=== PATIENT | male | born 2005 | race Native Hawaiian/Other Pacific Islander ===

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

== ENCOUNTER 2025-03-04 16:30 | Emergency (ER) | payer OTHER, SELFPAY ==
--- NOTE | ~2025-03-04 | US_ITS ---
CLINICAL HISTORY: R testicular pain US scrotum with Color and Duplex doppler. Comparison: None Technique: Real time sonographic imaging, including color-flow imaging, was performed by the jewel corner brushing machine operator. Multiple construction representative static images were saved for review. Findings: Right testicle normal size and echotexture, 4.4 x 2.1 x 3.0 cm. Normal color flow. Normal arterial and venous spectral doppler waveforms. Left testicle normal size and echotexture, 4.3 x 1.9 x 2.7 cm. Normal color flow. Normal arterial and venous spectral doppler waveforms. Normal epididymides. Small bilateral hydroceles Impression: 1. Normal testes. 2. Normal epididymi. 3. Small bilateral hydroceles This document has been electronically signed by: Santana Bui MD on 03/04/2025 20:03:12
--- NOTE | ~2025-03-04 | US_ITS ---
CLINICAL HISTORY: R testicular pain US scrotum with Color and Duplex doppler. Comparison: None Technique: Real time sonographic imaging, including color-flow imaging, was performed by the machine precision etcher. Multiple billing representative static images were saved for review. Findings: Right testicle normal size and echotexture, 4.4 x 2.1 x 3.0 cm. Normal color flow. Normal arterial and venous spectral doppler waveforms. Left testicle normal size and echotexture, 4.3 x 1.9 x 2.7 cm. Normal color flow. Normal arterial and venous spectral doppler waveforms. Normal epididymides. Small bilateral hydroceles Impression: 1. Normal testes. 2. Normal epididymi. 3. Small bilateral hydroceles This document has been electronically signed by: Santana Bui MD on 03/04/2025 20:03:12
[2025-03-04 16:49] VITALS: BP 118/54; PULSE 59; RESP 18; TEMP 36.7; O2SAT 98; BMI 24.1
--- NOTE | 2025-03-04 16:49 | ED_ITS ---
HPI - General Adult General Chief complaint: General Medical Stated complaint: Groin pain Time Seen by Provider: 03/04/25 20:33 Source: patient Mode of arrival: ambulatory Limitations: no limitations History of Present Illness ED Provider: Dr. Redding HPI narrative: 19-year-old male presented hospital today for right testicular pain that started on Friday. Patient stated the pain improves onto Friday however this pain returned. Therefore he presents to the ER for further evaluation. Denies any trauma to his right testicle. Patient denies any abdominal pain. Patient denies any penile discharge. Related Data Previous Rx's ?Medication ?Instructions ?Recorded doxycycline hyclate 100 mg capsule 100 mg PO BID 7 day s #14 caps 03/04/25 Allergies Allergy/AdvReac Type Severity Reaction Status Date / Time diphenhydramine (From Allergy Unknown UNKNOWN Verified 03/04/25 16:51 TRIAMINIC ALLERGY) Review of Systems Review of Systems: Pertinent review of systems as mentioned in HPI. All other system otherwise negative. [facility] Past Medical History [facility] Narrative: None Social History Social History Advance Directives: No Advance Directives Information Provided: No Physical Exam ED Exam Exam: General: Pleasant, no distress, interacting appropriately Head: Normacephalic, atraumatic Gastrointestinal: Soft, non distended, non tender, non guarding : Patient does have right testicular pain on palpation, does not appear to swollen or erythematous on exam. Appears to be well perfused. Cremasteric reflex intact, no signs of penile discharge. Foreskin appears to be intact Neurological: Awake and alert, no facial droop noted Skin: Warm and dry Psychiatric: Appropriate mood and thoughts Vital Signs: Vital Signs - 24 hr 03/04/25 16:49 03/04/25 20:31 Temperature 98.1 F 98.3 F Pulse Rate 59 48 L Respiratory Rate 18 16 Blood Pressure 118/54 L 101/52 L Pulse Oximetry 98 98 Oxygen Delivery Method Room Air Room Air BMI result Body Mass Index 24.1 Course Course Course Narrative: This is a rapid medical exam performed by Ramesh Woodruff NP: Additional HPI, ROS, PE not included below will be deferred to primary provider. Patient is a 19 yo M presenting with right testicular pain since night, worsenend on Fri, rates as 10/10 currently. Denies any new sexual partners or abnormal penile discharge. Plan: UA, CT NG, u/s Medications Administered Discontinued Medications Generic Name Dose Route Start Last Admin Trade Name Anant PRN Reason Stop Dose Admin Acetaminophen 975 mg 03/04/25 20:45 03/04/25 20:58 Acetaminophen 325 Mg Tablet PO 03/04/25 20:46 975 mg ONCE ONE Administration Ibuprofen 400 mg 03/04/25 20:45 03/04/25 20:58 Ibuprofen 400 Mg Tablet PO 03/04/25 20:46 400 mg ONCE ONE Administration Medical Decision Making Medical Decision Making [facility] Narrative: 19-year-old male presented hospital today this has been going on for 4 days. He had prior history of this which resolved on its own. Ultrasound was performed. Patient's UA did not show any signs of UTI, chlamydia and gonorrhea is pending I do not think this is STD in nature, patient's ultrasound of his testes are normal. No sign of testicular torsion. He does have small bilateral hydroceles. Discuss with patient to wear loose on the wears perhaps a boxer may help with his pain. To take NSAID Tylenol and Motrin around the clock. I do not think he has torsion. No signs of incarcerated hernia on exam. Discussed with the patient on coverage for STD. Patient states he would like the antibiotic. We will plan to give patient some IM ceftriaxone and start him on doxycycline. We will plan to discharge patient at this time. Differential Diagnosis Differential Diagnoses: The differential diagnosis associated with the presentation includes Testicular torsion, epididymitis, varicocele, hydrocele, incarcerated hernia Lab Data [facility] Lab Attestation statement: I reviewed the patient's lab results. Labs: Lab Results 03/04/25 Range/Units 20:27 Urine Color Yellow Urine Appearance Clear Urine pH 7.5 (5.0-9.0) Ur Specific [place] <= 1.005 (1.005-1.025) Urine Protein Negative (Neg-Trace) mg/dL Urine Glucose (UA) Negative (Negative) mg/dL Urine Ketones Negative (Negative) mg/dL Urine Blood Negative (Negative) Urine Nitrite Negative (Negative) Ur Leukocyte Esterase Negative (Negative) Independent Interpretation I performed an independent interpretation of an: Ultrasound Radiology Impression Discussion of test interpretation with radiology: I have reviewed the radiologist's reading. Discharge Plan Discharge Clinical Impression: Pain in right testicle Patient Disposition: Home, Self-Care Instructions: Testicle Pain (ED) Prescriptions: New doxycycline hyclate 100 mg capsule 100 mg PO BID 7 Days Qty: 14 0RF Stand Alone Forms: Work/School Release Print Language: Kosovan
[2025-03-04 20:31] VITALS: BP 101/52; PULSE 48; RESP 16; TEMP 36.8; O2SAT 98
[2025-03-04 20:38] LABS: Appearance Urine Clear; Glucose Urine UA Negative (Negative); PH 7.5 (5.0-9.0); Specific Gravity - Urine <= 1.005 (1.005-1.025)
--- NOTE | 2025-03-04 21:00 | PC.NURSE ---
provider at bedside, pt denies injury to the testicle, no nausea or vomiting. Pt medicated per MAR.
[2025-03-04 21:46] VITALS: BP 101/52; PULSE 48; RESP 16; TEMP 36.8; O2SAT 98
[2025-03-05 14:43] LABS: CT PCR Urine NOT DETECTED (Not Detect.); NG PCR Urine NOT DETECTED (Not Detect.)
== END 2025-03-04 21:48 | disposition home or self-care (01) ==
PROVIDERS: Registered Nurse Emergency; Emergency Provider Student in an Organized Health Care Education/Training Program
DX: N50.811 Right testicular pain (principal); R10.31 Right lower quadrant pain; R10.2 Pelvic and perineal pain; Z79.899 Other long term (current) drug therapy
CPT/HCPCS: 76870; 81003; 87491; 87591; 93975; 96372; 99284; J0696

== ENCOUNTER → 2025-03-04 16:52 | Outpatient (BNV) | payer SELFPAY | PROVIDERS: Emergency Provider Student in an Organized Health Care Education/Training Program; Visit Provider Radiology Diagnostic Radiology | DX: N50.811 Right testicular pain (principal) | CPT/HCPCS: 93975 ==